=== PATIENT | female | born 1980 | race Caucasian/White ===

== ENCOUNTER → 2018-01-11 | Outpatient (CLI) | payer OTHER | END | disposition home or self-care (01) | LOC: PLD 13:30 → LAB SHORT 13:30 | DX: D23.5 Other benign neoplasm of skin of trunk (principal) | CPT/HCPCS: 88305 ==

== ENCOUNTER → 2020-01-14 | Outpatient (CLI) | payer BC ==
[2020-01-14 20:36] LABS: Anion Gap 6 mmol/L (6-16); Blood Urea Nitrogen 13 mg/dL (8-24); Bun/Creatinine Ratio 12.6 (12.0-20.0); CO2, Blood 26 mmol/L (21-32); Calcium, Blood 9.1 mg/dL (8.5-10.1); Chloride, Blood 106 mmol/L (98-108); Creatinine, Blood 1.03 mg/dL (0.40-1.00); Glomerular Filtration Rate >60 (60-); Glucose, Blood 88 mg/dL (70-99); Potassium, Blood 3.8 mmol/L (3.5-5.5); Sodium, Blood 138 mmol/L (136-145)
== END | disposition home or self-care (01) ==
LOC: LAB SHORT 17:53 → LAB 17:53
PROVIDERS: Hospitalist
DX: I10 Essential (primary) hypertension (principal); Z52.4 Kidney donor
CPT/HCPCS: 80048

== ENCOUNTER 2020-09-25 06:05 | Inpatient (IN) | payer BC ==
[2020-09-23 13:09] LABS: BASOPHILS ABSOLUTE AUTO 0.07 K/mm3 (0.00-0.23); BASOPHILS PERCENT AUTO 1 % (0-2); EOSINOPHILS PERCENT AUTO 2 % (0-6); Hematocrit 43.6 % (33.0-51.0); Hemoglobin 14.4 g/dL (11.5-16.0); IMMATURE GRAN ABSOLUTE AUTO 0.03 K/mm3 (0.00-0.10); IMMATURE GRAN PERCENT AUTO 0 % (0-1); LYMPHOCYTES ABSOLUTE AUTO 3.44 K/mm3 (0.84-5.20); LYMPHOCYTES PERCENT AUTO 33 % (21-46); MONOCYTES ABSOLUTE AUTO 0.78 K/mm3 (0.16-1.47); MONOCYTES PERCENT AUTO 7 % (4-13); Mean Corpuscular HGB 30.8 pg (26.0-34.0); Mean Corpuscular Volume 93 fL (80-100); Mean Platelet Volume 10.5 fL (9.1-12.4); NEUTROPHILS ABSOLUTE AUTO 5.99 K/mm3 (1.96-9.15); NEUTROPHILS PERCENT AUTO 57 % (41-73); Platelet Count 306 K/mm3 (150-400); RDW Standard Deviation 44.3 fL (35.1-46.3); Red Blood Cell Count 4.67 M/mm3 (3.80-5.20); White Blood Cell Count 10.51 K/mm3 (4.00-11.30)
[2020-09-23 17:21] LABS: Anion Gap 10 mmol/L (6-16); Beta HCG, Quantitative, Serum <1 mIU/mL (0-3); Blood Urea Nitrogen 13 mg/dL (8-24); Bun/Creatinine Ratio 12.4 (12.0-20.0); CO2, Blood 22 mmol/L (21-32); Calcium, Blood 8.8 mg/dL (8.5-10.1); Chloride, Blood 106 mmol/L (98-108); Creatinine, Blood 1.05 mg/dL (0.40-1.00); Glomerular Filtration Rate >60 (60-); Glucose, Blood 76 mg/dL (70-99); Sodium, Blood 138 mmol/L (136-145)
[~2020-09-25] VITALS: Ht 170.2 cm; Wt 100.2 kg
[~2020-09-25 06:05] MED LIST: ZANAFLEX4 M1 PO
--- NOTE | 2020-09-25 07:21 | NUR ---
History, Chart, Medications and Allergies reviewed before start of procedure. Lungs clear T/O to Auscultation. Patient confirms NPO status and agrees with scheduled surgery. Patient reports completing Chlorhexadine shower X2 prior to admission to hospital. Pre-Op teaching done. Pt verbalizes understanding.
--- NOTE | 2020-09-25 15:00 | NUR ---
ASSUMED CARE REPORT FROM Navarro MONTENEGRO RN PATIENT RESTING COMFORTABLY, VISITING WITH A FRIEND HAVING GOOD PAIN CONTROL AT THIS TIME, ASKING ABOUT GETTING UP AND AMBULATING, CURRENTLY RATES PAIN 2/10 AND IS ACCEPTABLE, 2 PIV RT FOREARM AND AC BOTH PATENT, ABDOMINAL DRESSING INTACT WITH 3 CM ARE ON PT LEFT SIDE OF BLEEDING BUT NOT SOAKED THROUGH DRESSING FAINT BT BILATERAL LOW ABDOMEN, PAS ON AND INFLATING, TOLERATING CLEAR LIQUID AND CRACKERS, LIMA DRAINING CLEAR YELLOW URINE AT THIS TIME
--- NOTE | 2020-09-25 15:32 | NUR ---
INCENTIVE SPIROMETER GIVEN, INSTRUCTIONS GIVEN TO PT ON HOW TO USE EVERY 1-2 HRS WHILE AWAKE
--- NOTE | 2020-09-25 15:35 | NUR ---
INSTRUCTIONS ON USE OF INCENTIVE SPIROMETER
--- NOTE | 2020-09-25 16:22 | NUR ---
S/L IV PATIENT TOLERATING FLUIDS AND YOGURT WELL
--- NOTE | 2020-09-25 16:55 | NUR ---
S/L PIV RT FA, FLUSHED WITH 10CC NS
--- NOTE | 2020-09-25 16:56 | NUR ---
REPT TO Randi VALDEZ RN
--- NOTE | 2020-09-25 19:09 | NUR ---
PT AMBULATED TO THE REST ROOM WELL. NO ASSISTANCE NEEDED. CHUCKS PAD CHANGED AND RN NOTIFIED
--- NOTE | 2020-09-25 19:15 | NUR ---
ASSUMED CARE OF PATIENT. REPORT RECIEVED FORM EKTA BRISENO. PT IS AMBULATING INDEPENDENTLY AND DENIES PAIN AT THIS TIME.
--- NOTE | 2020-09-25 21:23 | NUR ---
REPORT GIVEN TO EKTA BOX.
[2020-09-26 06:18] LABS: BASOPHILS ABSOLUTE AUTO 0.05 K/mm3 (0.00-0.23); BASOPHILS PERCENT AUTO 0 % (0-2); EOSINOPHILS ABSOLUTE AUTO 0.05 K/mm3 (0.00-0.68); EOSINOPHILS PERCENT AUTO 0 % (0-6); Hematocrit 36.3 % (33.0-51.0); IMMATURE GRAN ABSOLUTE AUTO 0.05 K/mm3 (0.00-0.10); IMMATURE GRAN PERCENT AUTO 0 % (0-1); LYMPHOCYTES ABSOLUTE AUTO 2.51 K/mm3 (0.84-5.20); LYMPHOCYTES PERCENT AUTO 19 % (21-46); MONOCYTES ABSOLUTE AUTO 1.21 K/mm3 (0.16-1.47); MONOCYTES PERCENT AUTO 9 % (4-13); Mean Corpuscular HGB Conc 33.1 g/dL (31.5-36.5); Mean Corpuscular Volume 94 fL (80-100); Mean Platelet Volume 10.6 fL (9.1-12.4); NEUTROPHILS ABSOLUTE AUTO 9.68 K/mm3 (1.96-9.15); NEUTROPHILS PERCENT AUTO 71 % (41-73); Platelet Count 260 K/mm3 (150-400); RDW Coefficient Variation 13.2 % (11.7-14.2); RDW Standard Deviation 45.1 fL (35.1-46.3); Red Blood Cell Count 3.87 M/mm3 (3.80-5.20); White Blood Cell Count 13.55 K/mm3 (4.00-11.30)
--- NOTE | 2020-09-26 08:57 | NUR ---
09/26/20 0857 Ying Valnecia VERIFICATIONS: EDIT CHART.
[2020-09-26] MEDS ORDERED: ACET325 PO (10:29)
[2020-09-26] MEDS ORDERED: OXAYDO5 M1 PO (10:30)
[2020-09-26] MEDS ORDERED: DOCU100 PO (10:30)
--- NOTE | 2020-09-26 12:25 | NUR ---
Prescription for Peyton and Phenergan given. Her ride is on her way. Discharge instructions reviewed and questions answered. Some steri strips replaced on left side per dr lowe request. dry and intact. vss. Pt has post operative appt in [address] Lowe. will call sooner or be seen sooner if she has any problems or concerns.
== END 2020-09-26 12:30 | disposition home or self-care (01) | DRG 743 ==
LOC: ORSCMMR 06:05 → ORD 07:30 → SURS 12:05 → ORSCMMR 12:05 → BC 13:32
PROVIDERS: ADMIT Obstetrics & Gynecology
PROC: 0UT90ZZ Resection of Uterus, Open Approach (ICD-10-PCS; principal; 2020-09-25 07:30)
PROC: 0UJD4ZZ Inspection of Uterus and Cervix, Percutaneous Endoscopic Approach (ICD-10-PCS; 2020-09-25 07:30)
PROC: 0UT74ZZ Resection of Bilateral Fallopian Tubes, Percutaneous Endoscopic Approach (ICD-10-PCS; 2020-09-25 07:30)
DX: D25.0 Submucous leiomyoma of uterus (principal); I10 Essential (primary) hypertension; J45.909 Unspecified asthma, uncomplicated; E78.1 Pure hyperglyceridemia; F32.9 Major depressive disorder, single episode, unspecified; N94.6 Dysmenorrhea, unspecified; N92.1 Excessive and frequent menstruation with irregular cycle; Z52.4 Kidney donor; K66.0 Peritoneal adhesions (postprocedural) (postinfection)
CPT/HCPCS: 36415; 74018; 80048; 84702; 84703; 85025; 86850; 86900; 86901; 88307; A9270; J0690; J1885; J2250; J2704; J3010; J7120